=== PATIENT | male | born 1945 | race Caucasian/White ===

== ENCOUNTER 2016-04-27 09:57 | Emergency (ER) | payer MEDICARE, BC ==
[2016-04-27 10:18] VITALS: TEMP 97.7
[2016-04-27] MEDS ORDERED: ALBUTEROL/IPRATROPIUM 1 VIAL SOL INH ONE (10:26)
[2016-04-27 10:41] LABS: BASOPHILS % (AUTO) 0 % (0-3); EOSINOPHILS % (AUTO) 4 % (0-9); HEMATOCRIT 43 % (39-53); MEAN CORPUSCULAR HGB CONC 35.5 gm/dl (32.0-36.0); MEAN CORPUSCULAR VOLUME 89 fL (80-100); MONOCYTES % (AUTO) 10.3 % (0-12); NEUTROPHILS % (AUTO) 72.6 % (37-80)
[2016-04-27] MEDS ORDERED: CEFTRIAXONE 1 GM PDS IM ONE (10:47)
[2016-04-27] MEDS ORDERED: CODEINE/GUAIFENESIN 5 ML SOL PO ONE (10:47)
[2016-04-27] MEDS ORDERED: ALBUTEROL/IPRATROPIUM 1 VIAL SOL ONE (10:48)
[2016-04-27 10:57] LABS: CALCIUM 8.5 mg/dl (8.5-10.1); POTASSIUM 4.3 mMol/L (3.5-5.1)
[2016-04-27] MEDS ORDERED: CODEINE/GUAIFENESIN 5 ML SOL ONE ×2 (11:04→11:05)
[2016-04-27] MEDS ORDERED: CEFTRIAXONE 1 GM PDS ONE (11:05)
[2016-04-27] MEDS ORDERED: LIDOCAINE HCL 1% MPF SOL ONE (11:10)
[2016-04-27 11:29] VITALS: RESP 20
[2016-04-27 12:06] VITALS: BP 123/70; PULSE 89; O2SAT 98
== END 2016-04-27 12:00 | disposition home or self-care (01) | DRG 202 ==
LOC: ED 09:57
DX: J20.9 Acute bronchitis, unspecified (principal); J45.901 Unspecified asthma with (acute) exacerbation
CPT/HCPCS: 36415; 71020; 80048; 85025; 96372; 99284; J0696; J7620; J2001

== ENCOUNTER 2018-02-02 12:32 | Day surgery (SDC) | payer MEDICARE, BC ==
[2018-02-02 12:54] VITALS: O2SAT 95
[2018-02-02] MEDS: PHENYLEPHRINE HCL 10% OPHTHAL SOL ONE ×3 (12:57→13:07)
[2018-02-02] MEDS ORDERED: KETOROLAC/HOME 0.5% SOL RIGHTEYE ONE ×3 (12:58→13:08)
[2018-02-02] MEDS ORDERED: MOXIFLOXACIN-HOME SOL RIGHTEYE ONE ×2 (12:58→13:04)
[2018-02-02] MEDS: TROPICAMIDE 1% OPHTH SOL ONE ×3 (12:58→13:08)
[2018-02-02] MEDS: CYCLOPENTOLATE 1% SOL ONE ×3 (12:58→13:08)
[2018-02-02] MEDS: TETRACAINE HCL 0.5 % 1 DROP SOL ONE ×2 (13:10→14:10)
[2018-02-02] MEDS ORDERED: MIDAZOLAM 2 MG/2 ML SOL ONE (13:56)
[2018-02-02] MEDS ORDERED: POVIDONE IODINE 5% SOL ONE (14:05)
[2018-02-02] MEDS ORDERED: BSS W/ 0.5 MG P.F. EPI 1 BOTTLE ONE (14:05)
[2018-02-02] MEDS ORDERED: LIDOCAINE HCL 2% MPF 10 ML SOL ONE (14:05)
[2018-02-02] MEDS ORDERED: ACETAZOLAMIDE 250 MG PO ONE (14:23)
[2018-02-02 14:36] VITALS: BP 128/69; PULSE 77; RESP 20; TEMP 97.9
== END 2018-02-02 14:55 | disposition home or self-care (01) | DRG 125 ==
LOC: SURG 12:32
PROVIDERS: ATTEND Ophthalmology
DX: H25.89 Other age-related cataract (principal)
CPT/HCPCS: J2250; A9270-GY

== ENCOUNTER 2018-02-16 11:24 | Day surgery (SDC) | payer MEDICARE, BC ==
[2018-02-16] MEDS ORDERED: MIDAZOLAM 2 MG/2 ML SOL ONE (11:33)
[2018-02-16] MEDS: TROPICAMIDE 1% OPHTH SOL ONE ×3 (11:52→12:01)
[2018-02-16] MEDS: PHENYLEPHRINE HCL 10% OPHTHAL SOL ONE ×3 (11:52→12:01)
[2018-02-16] MEDS: CYCLOPENTOLATE 1% SOL ONE ×3 (11:52→12:01)
[2018-02-16] MEDS ORDERED: KETOROLAC/HOME 0.5% SOL LEFTEYE ONE ×3 (11:53→12:02)
[2018-02-16] MEDS ORDERED: MOXIFLOXACIN-HOME SOL LEFTEYE ONE ×2 (11:53→11:57)
[2018-02-16] MEDS: TETRACAINE HCL 0.5 % 1 DROP SOL ONE ×2 (12:02→12:47)
[2018-02-16] MEDS ORDERED: ACETAZOLAMIDE 250 MG PO ONE ×2 (12:03→13:30)
[2018-02-16] MEDS ORDERED: POVIDONE IODINE 5% SOL ONE (12:40)
[2018-02-16] MEDS: BSS W/ 0.5 MG P.F. EPI 1 BOTTLE ONE ×2 (12:49→12:52)
[2018-02-16] MEDS: LIDOCAINE HCL 2% MPF 10 ML SOL ONE ×2 (12:49→12:52)
[2018-02-16 13:26] VITALS: BP 129/78; PULSE 63; RESP 20; TEMP 97.8; O2SAT 99
== END 2018-02-16 13:43 | disposition home or self-care (01) | DRG 125 ==
LOC: SURG 11:24
PROVIDERS: ATTEND Ophthalmology
DX: H25.89 Other age-related cataract (principal)
CPT/HCPCS: J2250; A9270-GY

== ENCOUNTER 2018-08-07 11:56 | Emergency (ER) | payer MEDICARE, BC ==
[2018-08-07] MEDS ORDERED: NITROGLYCERIN 0.4 MG TAB SL ONE (12:05)
[2018-08-07] MEDS ORDERED: ASPIRIN 81 MG CHEWABLE CTB ONE (12:05)
[2018-08-07] MEDS ORDERED: SODIUM CHLORIDE 0.9% FLUSH 10 ML SOL IV PRN (12:08)
[2018-08-07] MEDS ORDERED: ASPIRIN 81 MG CHEWABLE CTB PO STA (12:08)
[2018-08-07] MEDS ORDERED: HEPARIN SODIUM 5000 U/ML SOL IV ONE (12:14)
[2018-08-07] MEDS ORDERED: HEPARIN PREMIX 25,000 U/250 ML SOL IV PRN (12:14)
[2018-08-07 12:16] LABS: BASOPHILS % (AUTO) 0 % (0-3); EOSINOPHILS % (AUTO) 0 % (0-9); HEMATOCRIT 44 % (39-53); HEMOGLOBIN 14.9 gm/dl (13.5-17.7); LYMPHOCYTES % (AUTO) 5.9 % (10-50); MEAN CORPUSCULAR HEMOGLOBIN 30.6 pg (27.0-32.0); MEAN CORPUSCULAR HGB CONC 33.4 gm/dl (32.0-36.0); MEAN CORPUSCULAR VOLUME 92 fL (80-100); MONOCYTES % (AUTO) 5.5 % (0-12); NEUTROPHILS % (AUTO) 88.1 % (37-80)
[2018-08-07] MEDS ORDERED: MORPHINE SULFATE 10 MG/ML SOL ONE (12:16)
[2018-08-07] MEDS ORDERED: MORPHINE SULFATE 10 MG/ML SOL IV ONE (12:17)
[2018-08-07] MEDS ORDERED: HEPARIN SODIUM 5000 U/ML SOL ONE ×3 (12:17→12:21)
[2018-08-07] MEDS ORDERED: TICAGRELOR 90 MG TAB PO ONE (12:20)
[2018-08-07 12:24] LABS: INR 0.97 (0.86-1.12)
[2018-08-07 12:25] LABS: CALCIUM 9.2 mg/dl (8.5-10.1); CARBON DIOXIDE 20.6 mEq/L (21-32); CREATININE 1.1 mg/dl (0.80-1.30); POTASSIUM 3.8 mMol/L (3.5-5.1); TROP I 0.506 ng/ml (0.000-0.056)
[2018-08-07 13:45] VITALS: BP 106/87; PULSE 108; RESP 20; O2SAT 98
== END 2018-08-07 12:29 | disposition short-term general hospital (02) | DRG 282 ==
LOC: ED 11:56
DX: I21.3 ST elevation (STEMI) myocardial infarction of unspecified site (principal)
CPT/HCPCS: 71045; 80048; 83880; 84484; 85025; 85610; 85730; 93005; 96374; 96375; 99291; J1644; J2270; A9270-GY